=== PATIENT | female | born 1990 | race Caucasian/White ===

== ENCOUNTER 2020-07-09 00:25 | Emergency (ER) | payer OTHER ==
[~2020-07-09 00:25] MED LIST: CLEOCIN300 MG PO; ETODOLAC500 MG PO; NORCO 5-325 TA1 EACH PO
== END 2020-07-09 03:31 | disposition left against medical advice (07) ==
LOC: FER 00:25
DX: R51.9 Headache, unspecified (principal); Z53.8 Procedure and treatment not carried out for other reasons
CPT/HCPCS: 99283; Q0164

== ENCOUNTER 2021-10-30 14:02 | Emergency (ER) | payer OTHER ==
[2021-10-30 18:13] LABS: BILIRUBIN NEGATIVE (NEGATIVE); BLOOD NEGATIVE Ery/uL (NEGATIVE); CLARITY CLEAR (CLEAR); COLOR YELLOW (YELLOW); GLUCOSE (U) NORMAL (NORMAL); LEUKOCYTES NEGATIVE Leu/uL (NEGATIVE); NITRITE NEGATIVE (NEGATIVE); PROTEIN NEGATIVE (NEGATIVE); UROBILINOGEN 0.2 mg/dL (0.2-1.0); pH 7.5 (5.0-9.0)
[2021-10-30 18:18] LABS: BASOPHIL 0.4 % (0-2); EOSINOPHIL 0.8 % (0-5); HCT 41.6 % (37.0-47.0); HGB 13.3 g/dl (12.5-16.0); LYMPHOCYTE 18.7 % (15-48); MCH 27.1 pg (25.0-31.0); MCV 84.9 fL (78.0-100.0); MONOCYTE 5.3 % (0-12); MPV 9.9 fL (6.0-9.5); NEUTROPHIL 74.6 % (41-80); NRBC 0; PLT 351 K/uL (150-400); RDW 14.9 % (11.5-14.0); WBC 8.5 K/uL (4.0-10.5)
[2021-10-30 18:33] LABS: BUN/CREAT RATIO (CALC) 11.6 RATIO; CREATININE 0.69 mg/dL (0.51-0.95); POTASSIUM 3.6 mmol/L (3.5-5.1)
[2021-10-30] MEDS ORDERED: BACLOFEN 10MG T10 MG PO (21:13)
[2021-10-30] MEDS ORDERED: PREDNISONE 20MG20 MG PO (21:13)
[2021-10-30] MEDS ORDERED: NAPROXEN500 MG PO (21:13)
== END 2021-10-30 21:35 | disposition home or self-care (01) ==
LOC: FER 14:02
PROVIDERS: Nurse Practitioner Family
DX: M54.6 Pain in thoracic spine (principal); Z88.0 Allergy status to penicillin; X50.1XXA Overexertion from prolonged static or awkward postures, initial encounter; Z28.310 Unvaccinated for COVID-19
CPT/HCPCS: 36415; 72100; 80048; 81003; 85025; J1100; J1885; J7030; Q9967